=== PATIENT | female | born 1995 | race Caucasian/White ===

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

== ENCOUNTER 2017-06-25 13:46 | Emergency (ER) | payer OTHER ==
[~2017-06-25] VITALS: Ht 160 cm; Wt 78.5 kg
[2017-06-25 13:56] VITALS: BP 140/96; Ht 160 cm; Wt 78.5 kg
== END 2017-06-25 15:51 | disposition home or self-care (01) ==
LOC: ED 13:46
DX: N39.0 Urinary tract infection, site not specified (principal); J45.909 Unspecified asthma, uncomplicated

== ENCOUNTER 2017-10-29 16:44 | Emergency (ER) | payer OTHER ==
[~2017-10-29] VITALS: Ht 160 cm; Wt 79.4 kg
[2017-10-29 16:48] VITALS: Ht 160 cm; Wt 79.4 kg
[2017-10-29 19:43] VITALS: BP 129/78
== END 2017-10-29 19:40 | disposition home or self-care (01) ==
LOC: ED 16:44
DX: B34.9 Viral infection, unspecified (principal); J02.9 Acute pharyngitis, unspecified; F41.9 Anxiety disorder, unspecified
CPT/HCPCS: J1885; J2405; J7030; Q0163

== ENCOUNTER 2017-12-21 21:28 | Emergency (ER) | payer OTHER ==
[~2017-12-21] VITALS: Ht 160 cm; Wt 83.0 kg
[2017-12-21 21:30] VITALS: Ht 160 cm; Wt 83.0 kg
[2017-12-21 23:31] VITALS: BP 138/76
== END 2017-12-21 23:31 | disposition home or self-care (01) ==
LOC: ED 21:28
DX: J45.901 Unspecified asthma with (acute) exacerbation (principal)
CPT/HCPCS: 87804; J7512; J7613; J7644

== ENCOUNTER 2018-05-22 02:45 | Emergency (ER) | payer OTHER ==
[~2018-05-22] VITALS: Ht 160 cm; Wt 87.3 kg
[2018-05-22 02:53] VITALS: BP 149/91; Ht 160 cm; Wt 87.3 kg
== END 2018-05-22 05:09 | disposition home or self-care (01) ==
LOC: ED 02:45
DX: J45.901 Unspecified asthma with (acute) exacerbation (principal)
CPT/HCPCS: J7512; J7613; J7644

== ENCOUNTER 2018-09-12 17:07 | Emergency (ER) | payer OTHER ==
[~2018-09-12] VITALS: Ht 160 cm; Wt 85.3 kg
[2018-09-12 17:29] VITALS: Ht 160 cm; Wt 85.3 kg
[2018-09-12 20:36] VITALS: BP 135/76
== END 2018-09-12 20:37 | disposition home or self-care (01) ==
LOC: ED 17:07
DX: G43.909 Migraine, unspecified, not intractable, without status migrainosus (principal); R03.0 Elevated blood-pressure reading, without diagnosis of hypertension; F17.210 Nicotine dependence, cigarettes, uncomplicated; F41.9 Anxiety disorder, unspecified; J45.909 Unspecified asthma, uncomplicated
CPT/HCPCS: 99406; J1885; J2765

== ENCOUNTER 2018-09-13 14:04 | Emergency (ER) | payer OTHER ==
[~2018-09-13] VITALS: Ht 160 cm; Wt 84.4 kg
[2018-09-13 14:19] VITALS: Ht 160 cm; Wt 84.4 kg
[2018-09-13 18:13] LABS: UA SPECIFIC GRAVITY 1.015 (1.005-1.035); microscopic required? YES; urine erythrocyte NEGATIVE (NEGATIVE)
[2018-09-13 20:56] VITALS: BP 135/85
== END 2018-09-13 20:56 | disposition home or self-care (01) ==
LOC: ED 14:04
PROVIDERS: Specialist
DX: G43.909 Migraine, unspecified, not intractable, without status migrainosus (principal); R19.7 Diarrhea, unspecified; J45.909 Unspecified asthma, uncomplicated
CPT/HCPCS: J0780; J1885; J2405; J3010; J3490; J7030

== ENCOUNTER 2019-02-27 23:42 | Emergency (ER) | payer OTHER ==
[~2019-02-27] VITALS: Ht 160 cm; Wt 80.3 kg
[2019-02-27 23:53] VITALS: Ht 160 cm; Wt 80.3 kg
[2019-02-28 01:32] VITALS: BP 153/83
== END 2019-02-28 01:32 | disposition home or self-care (01) ==
LOC: ED 23:42
DX: J45.901 Unspecified asthma with (acute) exacerbation (principal); G43.909 Migraine, unspecified, not intractable, without status migrainosus
CPT/HCPCS: J7613; J7644